=== PATIENT | female | born 1960 | race Caucasian/White ===

== ENCOUNTER 2022-10-20 10:17 | Emergency (ER) | payer BC ==
[2022-10-20] MEDS ORDERED: Sodium Chloride 0.9% 10 ML Syringe FLUSH PRN (11:21)
[2022-10-20 12:35] LABS: ESTIMATED GFR 99 mL/min (>60)
== END 2022-10-20 15:10 | disposition home or self-care (01) ==
LOC: JD.ED 10:17
DX: H91.91 Unspecified hearing loss, right ear (principal); Z88.8 Allergy status to other drugs, medicaments and biological substances; Z88.2 Allergy status to sulfonamides
CPT/HCPCS: 36415; 70450; 70496; 70498; 80053; 85025; 99284; J3490